=== PATIENT | male | born 1975 | race Caucasian/White ===

== ENCOUNTER 2024-04-09 09:38 | Outpatient (CLI) | payer BC, SELFPAY ==
--- NOTE | 2024-04-09 11:30 | NEURO_ITS ---
Impression: # Complains of numbness of hands. Non-diabetic. ? # Moderate to severe left Carpal Tunnel Syndrome. ? # No ulnar neuropathy. ? # Normal needle/EMG. Nerve Conduction Studies Anti Sensory Summary Table ?Stim Site NR Peak (ms) P-T Amp (?V) Site1 Site2 Delta-P (ms) Dist (cm) Alvin (m/s) Left Median Anti Sensory (2-3nd Digit) Wrist ? 5.2 29.7 Wrist 2-3nd Digit 5.2 14.0 27 Wrist ? 5.4 23.2 Wrist 2-3nd Digit 5.2 14.0 27 Right Median Anti Sensory (2-3nd Digit) Wrist ? 3.1 33.0 Wrist 2-3nd Digit 3.1 14.0 45 Wrist ? 3.2 30.7 Wrist 2-3nd Digit 3.1 14.0 45 Left Radial Anti Sensory (Base 1st Digit) Wrist ? 1.7 44.0 Wrist Base 1st Digit 1.7 0.0 Right Radial Anti Sensory (Base 1st Digit) Wrist ? 2.2 20.3 Wrist Base 1st Digit 2.2 0.0 Left Ulnar Anti Sensory (5th Digit) Wrist ? 2.5 59.0 Wrist 5th Digit 2.5 14.0 56 Right Ulnar Anti Sensory (5th Digit) Wrist ? 2.3 46.9 Wrist 5th Digit 2.3 14.0 61 Motor Summary Table ?Stim Site NR Onset (ms) O-P Amp (mV) Site1 Site2 Delta-0 (ms) Dist (cm) Alvin (m/s) Left Median Motor (Abd Poll Brev) Wrist ? 6.8 3.5 Elbow Wrist 4.7 27.0 57 Elbow ? 11.5 2.2 Right Median Motor (Abd Poll Brev) Wrist ? 3.4 4.9 Elbow Wrist 4.6 26.0 57 Elbow ? 8.0 2.7 Left Ulnar Motor (Abd Dig Minimi) Wrist ? 2.3 7.3 A Elbow Wrist 5.0 29.0 58 A Elbow ? 7.3 5.6 Right Ulnar Motor (Abd Dig Minimi) Wrist ? 2.7 8.1 A Elbow Wrist 4.8 29.0 60 A Elbow ? 7.5 7.1 F Wave Studies ?NR F-Lat (ms) L-R F-Lat (ms) Left Median (Mrkrs) (Abd Poll Brev) ? 31.89 4.62 Right Median (Mrkrs) (Abd Poll Brev) ? 27.27 4.62 Left Ulnar (Mrkrs) (Abd Dig Min) ? 27.00 0.86 Right Ulnar (Mrkrs) (Abd Dig Min) ? 27.86 0.86 EMG ?Side Muscle Nerve Root Ins Act Fibs Amp Dur Recrt Comment Right 1stDorInt Ulnar C8-T1 Nml Nml Nml Nml Nml Right Ext Indicis Radial (Post Int) C7-8 Nml Nml Nml Nml Nml Right Ext Digitorum Radial (Post Int) C7-8 Nml Nml Nml Nml Nml Right BrachioRad Radial C5-6 Nml Nml Nml Nml Nml Right PronatorTeres Median C6-7 Nml Nml Nml Nml Nml Right Abd Poll Brev Median C8-T1 Nml Nml Nml Nml Nml Right ABD Dig Min Ulnar C8-T1 Nml Nml Nml Nml Nml Left 1stDorInt Ulnar C8-T1 Nml Nml Nml Nml Nml Left Ext Indicis Radial (Post Int) C7-8 Nml Nml Nml Nml Nml Left Ext Digitorum Radial (Post Int) C7-8 Nml Nml Nml Nml Nml Left BrachioRad Radial C5-6 Nml Nml Nml Nml Nml Left PronatorTeres Median C6-7 Nml Nml Nml Nml Nml Left Abd Poll Brev Median C8-T1 Nml Nml Nml Nml Nml Left ABD Dig Min Ulnar C8-T1 Nml Nml Nml Nml Nml ? MTDD
== END 2024-04-09 09:39 | disposition home or self-care (01) ==
LOC: ANHNEURO 09:39
PROVIDERS: PCP Nurse Practitioner Family; Visit Provider Plastic Surgery
DX: G56.02 Carpal tunnel syndrome, left upper limb (principal)
CPT/HCPCS: 95886; 95911

== ENCOUNTER 2024-05-20 02:37 | Day surgery (SDC) | payer BC, SELFPAY ==
[2024-05-02 14:42] VITALS: BMI 35.3
--- NOTE | 2024-05-02 14:50 | PC.NURSE ---
Report to the Outpatient Waiting Room, entrance under the green pavilion located off [facility], at time _1015_ on date _[phone]_. Planned Procedure Time: _1215_.? Time changes happen often and if your time is changed the preop area will call you the afternoon before. - You and your visitor will be asked to self-screen and do not enter if you have any COVID symptoms. Please call surgeon if you need to reschedule. - A mask is optional within the hospital at this time. May have clear liquids (water, carbonated beverages, clear teas, apple juice) until 415am with a maximum of 20 ounces. Nothing to drink after 415am. - No food from midnight until time of surgery and no smoking, or chewing tobacco (or any form of nicotine). No chewing gum, candy or mints. Take only the following medications with a SIP of water on the morning of surgery: ___Bupropion and Sertraline DO NOT STOP ANY OF YOUR OTHER PRESCRIPTION MEDICATIONS PRIOR TO SURGERY EXCEPT THE FOLLOWING Hold all vitamins and supplements for 3 days per anesthesiologist. Medications to discontinue per physician Date to take last olva__[phone]____ Please no make-up, nail thai, hairspray, perfume, deodorant, or body powder the day of surgery.? No jewelry (including any body piercings) or valuables the day of surgery, leave them at home.? Please take a shower or bath the night before, or the morning of, surgery with an antibacterial soap.? Wear comfortable, loose fitting clothing.? - Jewelry must be removed prior to entering the operating room.? Rings and piercings that are not removed may be cut off. - The hospital will not accept responsibility for valuables.? - Please leave all valuables, including medications, at home the day of surgery. If you are going home after surgery, a licensed hack driver must drive you home.? - NO public transportation without another adult if you receive anesthesia. - We recommend that an adult stay with you for 24 hours following discharge. - We also recommend that you do not drive, make important decision, drink alcoholic beverages, or take any drugs that were not prescribed by your health care provider for at least 24 hours after your discharge time. Follow any additional instructions given to you from your surgeon. Telephone instructions given to __Brad__and asked if any additional questions and then verbalized understanding. Patient advised to call surgeon office or pre surgery nurse liaison [phone] if any additional questions.
--- NOTE | 2024-05-13 14:12 | PC.NURSE ---
Report to the Outpatient Waiting Room, entrance under the green pavilion located off [facility], at time _0600_ on date _[phone]_. Planned Procedure Time: _0730_.? Time changes happen often and if your time is changed the preop area will call you the afternoon before. - You and your visitor will be asked to self-screen and do not enter if you have any COVID symptoms. Please call surgeon if you need to reschedule. - A mask is optional within the hospital at this time. - No food or drink from midnight until time of surgery and no smoking, or chewing tobacco (or any form of nicotine). No chewing gum, candy or mints. Take only the following medications with a SIP of water on the morning of surgery: ____Bupropion and Sertraline and if still taking antibiotics may take also.__ DO NOT STOP ANY OF YOUR OTHER PRESCRIPTION MEDICATIONS PRIOR TO SURGERY EXCEPT THE FOLLOWING Hold all vitamins and supplements for 3 days per anesthesiologist. Medications to discontinue per physician Date to take last efpv___[phone]___ Please no make-up, nail kyrgyz, hairspray, perfume, deodorant, or body powder the day of surgery.? No jewelry (including any body piercings) or valuables the day of surgery, leave them at home.? Please take a shower or bath the night before, or the morning of, surgery with an antibacterial soap.? Wear comfortable, loose fitting clothing.? - Jewelry must be removed prior to entering the operating room.? Rings and piercings that are not removed may be cut off. - The hospital will not accept responsibility for valuables.? - Please leave all valuables, including medications, at home the day of surgery. If you are going home after surgery, a licensed lumber stacker driver must drive you home.? - NO public transportation without another adult if you receive anesthesia. - We recommend that an adult stay with you for 24 hours following discharge. - We also recommend that you do not drive, make important decision, drink alcoholic beverages, or take any drugs that were not prescribed by your health care provider for at least 24 hours after your discharge time. Follow any additional instructions given to you from your surgeon. Telephone instructions given to __Brad__and asked if any additional questions and then verbalized understanding. Patient advised to call surgeon office or pre surgery nurse liaison [phone] if any additional questions.
--- OUTSIDE RECORDS SUMMARY | 2024-05-20 02:41 | XMS_ITS | Patient Health Record ---
Author Organization [facility] Address [address] [place] [address] Care Team Providers Care Electrical Technician Name Role Phone Migration, Provider Unavailable Unavailable Allergies No Known Allergies Reason For Referral No Information Medications Medication SIG (Take, Route, Frequency, Duration) Notes Start Date End Date Status Zoloft *Pick strength-f orm from [facility] for eRX* Active Problems Problem Type SNOMED Code ICD Code Onset Dates Problem Status W/U Status Risk Notes Problem Generalized anxiety disorder (03674073) Generalized anxiety disorder (F41.1) 0 Active confirmed Problem Acute upper respiratory infection (37283462) Acute upper respiratory infection, unspecified (J06.9) 1 Active confirmed Problem Exposure to acute respiratory syndrome coronavirus 2 (390719779) Contact with and (suspected) exposure to COVID-19 (Z20.822) 1 Active confirmed Problem Exposure to communicable disease (599695484) Contact with and (suspected) exposure to other viral communicable diseases (Z20.828) 1 Inactive confirmed Problem COVID-19 (585944837) COVID-19 (U07.1) 1 Inactive confirmed Encounters Encounter Location Date Provider Diagnosis [facility] [address] [place] [address] 02/16/2024 Provider Migration [facility] [address] [place] [address] 02/17/2024 Provider Migration Plan Of Treatment No Information Insurance Providers Payer Name Payer Address Payer Phone Subscriber Number Group Number Insured Name Patient Relationship to Insured Coverage Start Date Coverage End Date [facility] [address] [place] [address] [phone] [id number] Yasemin Kowalski Other 0
--- OUTSIDE RECORDS SUMMARY | 2024-05-20 02:41 | XMS_ITS ---
Author Organization [facility] Address [address] [place] [address] Care Team Providers Care Field Director Name Role Phone Migration, Provider Unavailable Unavailable REASON FOR VISIT EMR-Jake Encounters Encounter Location Date Provider Diagnosis [facility] [address] [place] [address] 02/16/2024 Provider Migration Plan Of Treatment No Information Progress Notes * KRISTINA ARAIZADOB: [birth year] (48 yo M)Acc No.[id number]:02/16/2024 Patient: Cornell JONESKRISTINA :1975 A ge:48 Y S ex:Male Address:[address] [place] [address], [address] Subjective: * Chief Complaints: * E MR-Jake * Medical History: * Surgical History: * Hospitalization/Major Diagno stic Procedure: * Medications: Objective: * Vitals: * Physical Examination: Assessment: Plan: * Treatment: * Procedure Codes: * * Date:
--- OUTSIDE RECORDS SUMMARY | 2024-05-20 02:41 | XMS_ITS ---
Author Organization [facility] Address [address] [place] [address] Care Team Providers Care Chemistry Account Manager Name Role Phone Migration, Provider Unavailable Unavailable Allergies No Known Allergies REASON FOR VISIT EMR-[facility] Medications Medication SIG (Take, Route, Frequency, Duration) Notes Start Date End Date Status Zoloft *Pick strength-f orm from [facility] for eRX* Active Encounters Encounter Location Date Provider Diagnosis [facility] [address] [place] [address] 02/17/2024 Provider Migration Plan Of Treatment No Information Progress Notes * KRISTINA ARAIZADOB: [birth year] (48 yo M)Acc No.[id number]:02/17/2024 Patient: KRISTINA OHARA :1975 A ge:48 Y S ex:Male Address:[address] [place] [address], [address] Subjective: * Chief Complaints: * E MR-Jake * Medical History: * Surgical History: * Hospitalization/Major Diagno stic Procedure: * Medications: T akingZoloft , Notes to Pharmacist: *Pick strength-form from [facility] for eRX*Taking Zoloft , Notes to Pharmacist: *Pick strength-form from [facility] for eRX* * Allergies: N .K.D.A. Objective: * Vitals: * Physical Examination: Assessment: Plan: * Treatment: * Procedure Codes: * * Date:
--- OUTSIDE RECORDS SUMMARY | 2024-05-20 02:41 | XMS_ITS | Patient Health Record ---
Author Organization [facility] Address [address] [place], [place] [id number] Care Team Providers Care Balloon Maker Name Role Phone Owen Capellan Primary Care Provider [phone] Allergies No Known Allergies Reason For Referral No Information Medications Medication SIG (Take, Route, Fr equency, Duration) Notes Start Date End Date Status Abilify 5 MG 1 tablet Orally Once a day for 30 day(s) 10/11/2021 Active Sertraline HCl 100 MG 1 tablet Orally On ce a day for 90 days Active Fish Oil 1000 MG 1 capsule Orally Onc e a day for 30 day(s) 04/06/2018 Active Flexeril 10 mg 1 tablet at bedtime Orally Once a day for 30 days 12/22/2019 Active Meloxicam 15 MG 1 tablet with food O rally Once a day for 30 days 01/31/2022 Active Multivitamin Adult - as directed Orally Active Claritin 10 MG 1 tablet Orally Once a day Active Immunizations Vaccine Route Administration Date Status Comme nts Flu 6 months and up IM Intramuscular 04/21/2019 Admi nistered Flublok 18-64 years IM Intramuscular 12/22/2019 Admi nistered Flu State 4y-18y IM Intramuscular 04/02/2018 Administ ered Tdap 7 or older IM Intramuscular 04/02/2018 Administered Social History Tobacco Use: Social History Observation Description Date Details (start date - stop date) Current Smoker NA - NA Sex Assigned At : Social History Observation Description Sex Assigned At Male Tobacco Use/Smoking Question Answer Notes Are you a current tobacco user How often do you smoke cigarettes? every day How many cigarettes a day do you smoke? 6-10 How soon after you wake up d o you smoke your first cigarette? 31-60 minutes Are you interested in quitting? Thinking about q uitting Alcohol Screen Question Answer Notes Did you have a drink contain ing alcohol in the past year? Yes How often did you have a dri nk containing alcohol in the past year? Monthly or less (1 point) How many drinks did you have on a typical day when you were drinking in the past year? 1 or 2 drinks (0 point) How often did you have 6 or more drinks on one occasion in the past year? Less than monthly (1 point) Points 2 Interpretation Negative Problems Problem Type SNOMED Code ICD Code Onset Dates Problem Status W/U Status Risk Notes Problem 681459904 Hypertriglycerid emia (E78.1) Active confirmed Problem Annual health maintenance examination (12181463) Annual Physical Exam (Z00.00) Active confirmed Problem 910861332 Bipolar 1 disord er (F31.9) Active confirmed Problem 871260866 Morbid obesity (E66.01) Active confirmed Problem 226134322 Fatty liver (K76.0) Active confirmed Problem 88457756 ERNESTO (obstructive sleep apnea) (G47.33) Active confirmed Problem Testicular hypofunction (274501923) 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 confirmed Problem 52902619 Cigarette nicoti ne dependence without complication (F17.210) Active confirmed Problem 13834363 Hidradenitis (L73.2) Active confirmed Problem 661141745 BMI 38.0-38.9,ad ult (Z68.38) Active confirmed Problem 960037066 Body mass index (BMI) of 37.0 to 37.9 in adult (Z68.37) Active confirmed Plan Of Treatment No Information Insurance Providers Payer Name Payer Address Payer Phone Subscriber Number Group Number Insured Name Patient Relationship to Insured Coverage Start Date Coverage End Date [employer] PPO [address] [place] [phone] [id number] Jaxon Kowalski Self - patient is the insured 2021 Medical (General) History Medical History History ICD Code Pneumonia Hemorrhoids Surgical History Surgery Date(Month/Year) Appendectomy 1991 Carpal tunnel 2016 Hospitalization History Reason Date(Month/Year) Appendicitis 02/1991 Carpal tunnel 2017
--- NOTE | 2024-05-20 06:47 | P.PNAN_ITS ---
Anes - Initial Pre Proc Eval Procedure: Operation Date: 05/20/24 07:30 Proposed Procedures p Left Endoscopic Carpal Tunnel Release Possible Open, Left Cubital Tunnel Release - Huy Donis MD Date/Time: 05/20/24 06:47 Surgeon: Huy Donis MD Pre Op Diagnosis: Lt Carpal & Cubital Tunn Synd Patient Data Age: 48 Gender: M Height: 1.7 m Weight: 102.3 kg Allergies Allergy/AdvReac Type Severity Reaction Status Date / Time No Known Allergies Allergy Verified 05/13/24 14:10 Home Medications ?Medication ?Instructions ?Recorded ?Confirmed ?Type multivitamin (Daily Multi-Vitamin 1 tablet PO DAILY 10/17/23 05/02/24 History tablet) omega 5-dvz-lue-fish oil 1,200 mg 1 cap PO DAILY 10/17/23 05/02/24 History (144 mg-216 mg) capsule (Fish Oil) sertraline 100 mg tablet 100 mg PO DAILY #90 tabs 03/20/24 05/13/24 Rx cyclobenzaprine 10 mg tablet 10 mg PO TID #90 tabs 04/23/24 05/02/24 Rx hydrocodone 10 mg-acetaminophen 1 tablet PO DAILY PRN pain #30 tabs 04/23/24 05/02/24 Rx 325 mg tablet bupropion HCl 150 mg 24 hr tablet, 150 mg PO DAILY #90 tabs 04/28/24 05/02/24 Rx extended release meloxicam 15 mg tablet 15 mg PO DAILY #90 tabs 04/28/24 05/02/24 Rx Patient hx anesthesia problems: none Family hx anesthesia problems: none Results Review: All pre-operative results and documents have been reviewed as part of the pre- operative evaluation. [facility] Family History Family History Mother Cerebrovascular accident Grandparent Hypertension Legal Guardian Cerebrovascular accident Social History Social History Years smoked: 30 Smoking status: Current every day smoker Tobacco type: cigarettes Additional smoking assessment comments: also used to dip. Alcohol intake: current Substance use: never Substance use type: does not use Living arrangements: with family Spiritual care concerns: No Anes - Eval Final PreProcedure Day of Procedure 05/20/24 06:47 Patient weight: obese Lungs: normal air movement Airway: Mallampati scale class II Neurological: alert and oriented Last oral intake: >/= 8 hours ASA classification: III Emergent: no Anesthetic plan: proceed Anesthesia type and monitoring: general GIVS and standard monitoring Results Review: All pre-operative results and documents have been reviewed as part of the pre- operative evaluation. ERNESTO noncompliant w CPAP, smoker, 1/2 ppd and smoked at 5-6 am. Pt had bronchitis last week, case rescheduled, he has been on abx and feels mostly at baseline today without fevers or prod sputum. Informed Consent: The patient's anesthetic plan and its attendant risks and benefits were discussed with the patient/family/POA. Questions were solicited and answers provided to the satisfaction of the patient/family/POA.
--- NOTE | 2024-05-20 06:57 | WPDHPUPDATE1 ---
History and Physical Update Update Date/Time: 05/20/24 06:57 Patient seen and examined in pre-operative holding area. No interval change in medical history or symptoms. Patient recalls previous discussion of benefits and alternatives to procedure. Continues to desire to proceed with left endoscopic possible open carpal tunnel release. Reviewed procedure, post-op expectations and risks including but not limited to bleeding, infection, injury to tendon/nerve/vessel, decreased hand function, stiffness, RSD, no change or worsening of symptoms. I discussed the possible use of assistants and their participation in the case. Patient stated understanding and signed the consent form wishing to proceed.
--- NOTE | 2024-05-20 06:58 | W.PM.PROC2 ---
Procedure Note - Detailed Date of Procedure 05/20/24 Pre-op Diagnosis Lt Carpal Tunn Synd Post-op Diagnosis Same Procedure Performed left ectr Surgeon Huy Donis MD Glass Installer Technician kathryn flores pa-c Anesthesia MAC Description of Procedure INFORMED CONSENT: The patient was seen and examined and marked in the pre-op area.? The patient signed the consent form. PROCEDURE IN DETAIL:The patient taken back to OR on the stretcher in supine position. Time out performed with anesthesia, surgeon and staff agreeing on patient's name site and surgery to be performed SCDs were placed on the lower extremities and inflated. A tourniquet was placed on {left} upper extremity and antibiotics given IV After anesthesia administered sedation I injected {10}cc 1%lido with epi and 0.5% marcaine plain at the operative sites The?{left upper extremity}?was prepped and draped in sterile fashion the??{left upper extremity} was? exsanguinated with Esmarch bandage and tourniquet inflated to 250mmHg I made a transverse incision in the {left} volar distal wrist crease through skin and dermis with 15 blade scalpel.? Littler scissors spread down to antebrachial fascia. A small incision was made in antebrachial fascia allowing access to Carpal tunnel. I proceeded with sequential dilation staying in line with the ring finger and hugging the hook of the hamate.? I then used the synovial elevator to free any adhesions from the underside of the transverse carpal ligament. Next I was able to insert the Microaire endoscopic carpal tunnel device with direct visualization of the transverse fibers on the monitor and proceeded with complete segmental retrograde release of the ligament in its entirety.? I irrigated with normal saline and closed with 4-0 monocryl for dermis and subcuticular closure. The incision was covered with Dermabond then 4x4s, aleida, and a volar wrist splint for patient safety, security and comfort and secured with brandy bandages after the tourniquet was let down noting the hand was warm and well perfused.? Patient awaken from anesthesia and transferred to recovery in stable condition Complications - none EBL- 1cc Disposition - home in stable conditions Kathryn Flores PA-C was essential for positioning, retraction, closure and dressing placement [facility] Billing Surgery - Charge Forward: Surgery Billing ([id number] same for kathryn adding )
[2024-05-20] MEDS: LACTATED RINGERS 1,000 ML 30 ML IV CONT (07:17)
[2024-05-20 07:22] VITALS: BP 128/86; PULSE 80; RESP 14; TEMP 36.3; O2SAT 98
[2024-05-20] MEDS: ceFAZolin 2 GM/D5W 50 ML 2 GM/50 ML BAG IVPB (07:25)
[2024-05-20] MEDS: BUPivacaine HCL 0.5% 10 ML AMP INFILTRATE (07:40)
[2024-05-20] MEDS: LIDO 1%/EPINEPHRINE 1:100,000 20 ML VIAL 10 ML INFILTRATE (07:40)
[2024-05-20 07:49] VITALS: BP 131/80; PULSE 83; RESP 12; O2SAT 100
[2024-05-20 08:15] VITALS: BP 140/79; PULSE 70; RESP 20
[2024-05-20 08:35] VITALS: BP 135/70; PULSE 75; RESP 20
== END 2024-05-20 08:40 | disposition home or self-care (01) ==
PROVIDERS: PCP Nurse Practitioner Family; Visit Provider Plastic Surgery
PROC: 01N54ZZ Release Median Nerve, Percutaneous Endoscopic Approach (ICD-10-PCS; CPT 29848; principal; 2024-05-20 07:30)
DX: G56.02 Carpal tunnel syndrome, left upper limb (principal); G56.22 Lesion of ulnar nerve, left upper limb; F17.210 Nicotine dependence, cigarettes, uncomplicated; G47.33 Obstructive sleep apnea (adult) (pediatric); E66.9 Obesity, unspecified; Z68.36 Body mass index [BMI] 36.0-36.9, adult; Z79.891 Long term (current) use of opiate analgesic; Z82.49 Family history of ischemic heart disease and other diseases of the circulatory system
CPT/HCPCS: 29848; J0690; J2003; J2004; J2250; J2405; J2704; J3010; J7120